=== PATIENT | female | born 1975 | race American Indian/Alaskan Native ===

== ENCOUNTER 2017-08-26 08:51 | Emergency (ER) | payer SELFPAY ==
[2017-08-26 08:59] VITALS: BP 153/94
[2017-08-26] MEDS ORDERED: PROVENTIL IH ONE (08:59)
== END 2017-08-26 10:22 | disposition left against medical advice (07) ==
LOC: ED 08:51
DX: J45.901 Unspecified asthma with (acute) exacerbation (principal); Z88.0 Allergy status to penicillin; Z88.2 Allergy status to sulfonamides; Z91.013 Allergy to seafood; Z87.891 Personal history of nicotine dependence; Z53.21 Procedure and treatment not carried out due to patient leaving prior to being seen by health care provider

== ENCOUNTER 2018-05-29 06:31 | Emergency (ER) | payer OTHER ==
[2018-05-29 06:40] VITALS: BP 137/85
--- NOTE | 2018-05-29 08:25 | Emergency Department Report ---
ED Upper Extremity Inj HPI - General Chief Complaint: Extremity Injury, Upper Stated Complaint: LEFT HAND TO ELBOW PAIN Time Seen by Provider: 05/29/18 08:20 Source: patient Mode of arrival: Ambulatory Limitations: No Limitations - History of Present Illness Initial Comments: Pt presents to the ED with c/o left hand and left wrist pain that began 3 weeks ago. She states she lifted a heavy basket at work and felt a "popping sensation" three weeks ago. She has had continued pain. Denies any previous injury. She states she has been taking ibuprofen for the pain. She is able to move all digits of the left hand. No numbness/weakness. - Related Data Home Medications Medication Instructions Recorded Confirmed Last Taken Alendronate Sodium 04/25/13 04/25/13 Unknown Darunavir Ethanolate [Prezista] 04/25/13 04/25/13 Unknown Ritonavir [Norvir] 04/25/13 04/25/13 Unknown Previous Rx's Medication Instructions Recorded Last Taken Type ALBUTEROL Inhaler (OR & NICU) 1 puff IH Q4-6H PRN #1 inha 04/25/13 Unknown Rx [ProAir HFA Inhaler] predniSONE [Deltasone] 1 tab PO TID #17 tab 04/25/13 Unknown Rx Ibuprofen 800 mg PO Q6HR PRN #20 tablet 05/29/18 Unknown Rx Allergies Allergy/AdvReac Type Severity Reaction Status Date / Time Penicillins Allergy Rash Verified 04/25/13 18:08 shellfish derived Allergy Rash Verified 04/25/13 18:10 Sulfa (Sulfonamide Allergy Rash Verified 04/25/13 18:10 Antibiotics) ED Review of Systems ROS: Stated complaint: LEFT HAND TO ELBOW PAIN Other details as noted in HPI Comment: All other systems reviewed and negative ED Past Medical Hx - Past Medical History Previous Medical History?: Yes Hx Asthma: Yes Hx HIV: Yes - Surgical History Past Surgical History?: Yes Additional Surgical History: c sec X4, circloges X 3, hernia, cervix, tubali gation - Social History Smoking Status: Former Smoker Substance Use Type: Marijuana - Medications Home Medications: Home Medications Medication Instructions Recorded Confirmed Last Taken Type ALBUTEROL Inhaler (OR & NICU) 1 puff IH Q4-6H PRN #1 inha 04/25/13 Unknown Rx [ProAir HFA Inhaler] Alendronate Sodium 04/25/13 04/25/13 Unknown History Darunavir Ethanolate [Prezista] 04/25/13 04/25/13 Unknown History Ritonavir [Norvir] 04/25/13 04/25/13 Unknown History predniSONE [Deltasone] 1 tab PO TID #17 tab 04/25/13 Unknown Rx Ibuprofen 800 mg PO Q6HR PRN #20 tablet 05/29/18 Unknown Rx ED Physical Exam - General Limitations: No Limitations General appearance: alert, in no apparent distress - Head Head exam: Present: atraumatic, normocephalic - Eye Eye exam: Present: normal appearance - ENT ENT exam: Present: mucous membranes moist - Extremities Exam Extremities exam: Present: other (mild TTP over the left thumb MCP, left thumb metacarpal, FROM of all the digits of the left hand, FROM of the left wrist, no TTP of the left wrist, neurovascularly intact, very mild amount of snuffbox TTP) ED Course Vital Signs 05/29/18 06:36 Temperature 97.7 F Pulse Rate 102 H Respiratory 20 Rate Blood Pressure 137/85 O2 Sat by Pulse 99 Oximetry ED Medical Decision Making - Radiology Data Radiology results: report reviewed PROCEDURE: XR WRIST 3+V LT, XR HAND 3+V LT TECHNIQUE: 3 views left hand and wrist HISTORY: left thumb/left wrist pain COMPARISONS: None FINDINGS: Carpal arcs are intact. No periosteal reaction, fracture or gross malalignment involving the left hand or wrist. IMPRESSION: No acute fracture or gross malalignment identified in the left hand or wrist. This document is electronically signed by Eriberto Kraus MD., May 29 2018 08:58:48 AM ET TECHNIQUE: 3 views left hand and wrist HISTORY: left thumb/left wrist pain COMPARISONS: None FINDINGS: Carpal arcs are intact. No periosteal reaction, fracture or gross malalignment involving the left hand or wrist. IMPRESSION: No acute fracture or gross malalignment identified in the left hand or wrist. This document is electronically signed by Eriberto Kraus MD., May 29 2018 08:58:48 AM ET - Medical Decision Making Pt presents with left thumb and left wrist pain for 3 weeks. Lifted a heavy basket at work and felt a popping sensation. XR of the left hand and wrist with no acute process. Pt is able to move all digits, neurovascularly intact. Due to very, mild amount of left sided snuffbox tenderness will place in wrist splint and have pt follow up with dontae Gaona as soon as possible. Critical care attestation.: If time is entered above; I have spent that time in minutes in the direct care of this critically ill patient, excluding procedure time. ED Disposition Clinical Impression: Left hand pain, Left wrist pain Disposition: TO HOME OR SELFCARE Is pt being admited?: No Does the pt Need Aspirin: No Condition: Stable Instructions: Wrist Injury (ED), Hand Sprain (ED) Additional Instructions: Follow up with orthopedic as soon as possible. Follow up with your primary care in the next 2-3 days. Return to the emergency room for any new or worsening symptoms. May use ice and ibuprofen 800 mg as needed. Prescriptions: Ibuprofen 800 mg PO Q6HR PRN #20 tablet PRN Reason: Pain, Moderate (4-6) Referrals: MARIA PATHAK MD [Primary Care Provider] - 2-3 Days JOAQUIN MARY MD [Staff Physician] - [facility] Time of Disposition: 09:17 Print Language: PAKISTANI
--- NOTE | 2018-05-29 09:01 | XRay Report ---
PROCEDURE: XR WRIST 3+V LT, XR HAND 3+V LT TECHNIQUE: 3 views left hand and wrist HISTORY: left thumb/left wrist pain COMPARISONS: None FINDINGS: Carpal arcs are intact. No periosteal reaction, fracture or gross malalignment involving the left butt d or wrist. IMPRESSION: No acute fracture or gross malalignment identified in the left hand or wrist. This document is electronically signed by Eriberto Kraus MD., May 29 2018 08:58:48 AM ET
== END 2018-05-29 09:42 | disposition home or self-care (01) ==
LOC: ED 06:31
DX: M25.532 Pain in left wrist (principal); M79.642 Pain in left hand; J45.909 Unspecified asthma, uncomplicated; F12.10 Cannabis abuse, uncomplicated; Z87.891 Personal history of nicotine dependence

== ENCOUNTER 2018-10-10 07:50 | Emergency (ER) | payer MEDICAID, OTHER ==
[2018-10-10 08:30] LABS: Basophils % (Auto) 0.5 % (0.0-1.8); Eosinophils # (Auto) 0.4 K/mm3 (0.0-0.4); Eosinophils % (Auto) 9.7 % (0.0-4.3); Hematocrit 41.9 % (30.3-42.9); Hemoglobin 14.1 gm/dl (10.1-14.3); Lymphocytes # (Auto) 2.1 K/mm3 (1.2-5.4); Lymphocytes % (Auto) 46.3 % (13.4-35.0); Mean Corpuscular HGB Conc 34 % (30-34); Mean Corpuscular Volume 92 fl (79-97); Monocytes # (Auto) 0.4 K/mm3 (0.0-0.8); Platelet Count 227 K/mm3 (140-440); Red Blood Count 4.58 M/mm3 (3.65-5.03); Red Cell Distribution Width 13.6 % (13.2-15.2)
[2018-10-10] MEDS ORDERED: MORPHINE IV ONE (08:31)
[2018-10-10] MEDS ORDERED: ZOFRAN IV ONE (08:31)
--- NOTE | 2018-10-10 08:33 | Emergency Department Report ---
ED General Adult HPI - General Chief complaint: Abdominal Pain Stated complaint: ABD PAIN/PELVIC Time Seen by Provider: 10/10/18 08:30 Source: patient Mode of arrival: Ambulatory Limitations: No Limitations - History of Present Illness Initial comments: The patient complains of lower right quadrant abdominal pain that radiates into her right leg that started this morning. Patient states she's had pain like this in the past and has never been able to find out the cause of the pain. Patient denies a history of ovarian cyst, endometriosis, fibroids. Patient denies chest pain but does endorse some shortness of breath due to her asthma. -: Sudden Location: abdomen, pelvis Severity scale (0 -10): 8 Quality: aching Consistency: constant Improves with: rest Worsens with: movement Associated Symptoms: denies other symptoms Treatments Prior to Arrival: none - Related Data Home Medications Medication Instructions Recorded Confirmed Last Taken Alendronate Sodium 04/25/13 04/25/13 Unknown Darunavir Ethanolate [Prezista] 04/25/13 04/25/13 Unknown Ritonavir [Norvir] 04/25/13 04/25/13 Unknown Previous Rx's Medication Instructions Recorded Last Taken Type ALBUTEROL Inhaler (OR & NICU) 1 puff IH Q4-6H PRN #1 inha 04/25/13 Unknown Rx [ProAir HFA Inhaler] predniSONE [Deltasone] 1 tab PO TID #17 tab 04/25/13 Unknown Rx Ibuprofen 800 mg PO Q6HR PRN #20 tablet 05/29/18 Unknown Rx ALBUTEROL Inhaler (OR & NICU) 2 puff IH Q4HR PRN #1 inhalation 10/10/18 Unknown Rx [ProAir HFA Inhaler] Albuterol Sulfate [Albuterol 0.63% 0.63 mg IH Q4HR PRN #30 ml 10/10/18 Unknown Rx NEBS] HYDROcodone/APAP 5-325 [[place] 1 each PO Q6HR PRN #12 tablet 10/10/18 Unknown Rx 5/325] Naproxen [Naprosyn] 500 mg PO BID PRN #20 tablet 10/10/18 Unknown Rx predniSONE [Deltasone] 20 mg PO DAILY #15 tablet 10/10/18 Unknown Rx Allergies Allergy/AdvReac Type Severity Reaction Status Date / Time Penicillins Allergy Rash Verified 04/25/13 18:08 shellfish derived Allergy Rash Verified 04/25/13 18:10 Sulfa (Sulfonamide Allergy Rash Verified 04/25/13 18:10 Antibiotics) ED Review of Systems ROS: Stated complaint: ABD PAIN/PELVIC Other details as noted in HPI Comment: All other systems reviewed and negative Constitutional: denies: chills, fever Eyes: denies: eye pain, eye discharge, vision change ENT: denies: ear pain, throat pain Respiratory: denies: cough, shortness of breath, wheezing Cardiovascular: denies: chest pain, palpitations Endocrine: no symptoms reported Gastrointestinal: abdominal pain. denies: nausea, diarrhea Genitourinary: denies: urgency, dysuria, discharge Musculoskeletal: denies: back pain, joint swelling, arthralgia Skin: denies: rash, lesions Neurological: denies: headache, weakness, paresthesias Psychiatric: denies: anxiety, depression Hematological/Lymphatic: denies: easy bleeding, easy bruising ED Past Medical Hx - Past Medical History Hx Asthma: Yes Hx HIV: Yes - Surgical History Past Surgical History?: Yes Additional Surgical History: c sec X4, circloges X 3, hernia, cervix, tubaligation - Social History Smoking Status: Current Every Day Smoker Substance Use Type: Marijuana - Medications Home Medications: Home Medications Medication Instructions Recorded Confirmed Last Taken Type ALBUTEROL Inhaler (OR & NICU) 1 puff IH Q4-6H PRN #1 inha 04/25/13 Unknown Rx [ProAir HFA Inhaler] Alendronate Sodium 04/25/13 04/25/13 Unknown History Darunavir Ethanolate [Prezista] 04/25/13 04/25/13 Unknown History Ritonavir [Norvir] 04/25/13 04/25/13 Unknown History predniSONE [Deltasone] 1 tab PO TID #17 tab 04/25/13 Unknown Rx Ibuprofen 800 mg PO Q6HR PRN #20 tablet 05/29/18 Unknown Rx ALBUTEROL Inhaler (OR & NICU) 2 puff IH Q4HR PRN #1 inhalation 10/10/18 Unknown Rx [ProAir HFA Inhaler] Albuterol Sulfate [Albuterol 0.63% 0.63 mg IH Q4HR PRN #30 ml 10/10/18 Unknown Rx NEBS] HYDROcodone/APAP 5-325 [[place] 1 each PO Q6HR PRN #12 tablet 10/10/18 Unknown Rx 5/325] Naproxen [Naprosyn] 500 mg PO BID PRN #20 tablet 10/10/18 Unknown Rx predniSONE [Deltasone] 20 mg PO DAILY #15 tablet 10/10/18 Unknown Rx ED Physical Exam - General Limitations: No Limitations General appearance: alert, in no apparent distress - Head Head exam: Present: atraumatic, normocephalic - Eye Eye exam: Present: normal appearance, PERRL, EOMI - ENT ENT exam: Present: mucous membranes moist - Neck Neck exam: Present: normal inspection - Respiratory Respiratory exam: Present: wheezes (Mild expiratory wheezing ). Absent: respiratory distress - Cardiovascular Cardiovascular Exam: Present: regular rate, normal rhythm. Absent: systolic murmur, diastolic murmur, rubs, gallop - GI/Abdominal GI/Abdominal exam: Present: soft, tenderness (ttp rlq), normal bowel sounds. Absent: distended - Extremities Exam Extremities exam: Present: normal inspection - Back Exam Back exam: Present: normal inspection - Neurological Exam Neurological exam: Present: alert, oriented X3 - Psychiatric Psychiatric exam: Present: normal affect, normal mood - Skin Skin exam: Present: warm, dry, intact, normal color. Absent: rash ED Course Vital Signs 10/10/18 10/10/18 10/10/18 07:55 08:30 11:00 Temperature 98.0 F Pulse Rate 81 81 85 Respiratory 20 18 17 Rate Blood Pressure 172/103 Blood Pressure 161/100 138/63 [Right] O2 Sat by Pulse 99 100 100 Oximetry ED Medical Decision Making - Lab Data Result diagrams: 10/10/18 08:11 10/10/18 08:11 Lab Results 10/10/18 10/10/18 10/10/18 Range/Units 08:11 08:11 08:30 WBC 4.5 (4.5-11.0) K/mm3 RBC 4.58 (3.65-5.03) M/mm3 Hgb 14.1 (10.1-14.3) gm/dl Hct 41.9 (30.3-42.9) % MCV 92 (79-97) fl MCH 31 (28-32) pg MCHC 34 (30-34) % RDW 13.6 (13.2-15.2) % Plt Count 227 (140-440) K/mm3 Lymph % (Auto) 46.3 H (13.4-35.0) % Morrison % (Auto) 8.0 H (0.0-7.3) % Eos % (Auto) 9.7 H (0.0-4.3) % Baso % (Auto) 0.5 (0.0-1.8) % Lymph # 2.1 (1.2-5.4) K/mm3 Morrison # 0.4 (0.0-0.8) K/mm3 Eos # 0.4 (0.0-0.4) K/mm3 Baso # 0.0 (0.0-0.1) K/mm3 Seg Neutrophils % 35.5 L (40.0-70.0) % Seg Neutrophils # 1.6 L (1.8-7.7) K/mm3 Sodium 139 (137-145) mmol/L Potassium 4.2 (3.6-5.0) mmol/L Chloride 104.2 (98-107) mmol/L Carbon Dioxide 25 (22-30) mmol/L Anion Gap 14 mmol/L BUN 10 (7-17) mg/dL Creatinine 0.8 (0.7-1.2) mg/dL Estimated GFR > 60 ml/min BUN/Creatinine Ratio 13 % Glucose 90 (65-100) mg/dL Calcium 8.8 (8.4-10.2) mg/dL Total Bilirubin < 0.20 (0.1-1.2) mg/dL AST 21 (5-40) units/L ALT 22 (7-56) units/L Alkaline Phosphatase 89 (35-129) units/L Total Protein 7.6 (6.3-8.2) g/dL Albumin 4.0 (3.9-5) g/dL Albumin/Globulin Ratio 1.1 % HCG, Quant (0-4) mIU/mL Urine Color Yellow (Yellow) Urine Turbidity Clear (Clear) Urine pH 7.0 (5.0-7.0) Ur Specific [place] 1.013 (1.003-1.030) Urine Protein <15 mg/dl (Negative) mg/dL Urine Glucose (UA) Neg (Negative) mg/dL Urine Ketones Neg (Negative) mg/dL Urine Blood Neg (Negative) Urine Nitrite Neg (Negative) Urine Bilirubin Neg (Negative) Urine Urobilinogen < 2.0 (<2.0) mg/dL Ur Leukocyte Esterase Neg (Negative) Urine WBC (Auto) < 1.0 (0.0-6.0) /HPF Urine RBC (Auto) 1.0 (0.0-6.0) /HPF U Epithel Cells (Auto) 2.0 (0-13.0) /HPF 10/10/18 Range/Units 09:28 WBC (4.5-11.0) K/mm3 RBC (3.65-5.03) M/mm3 Hgb (10.1-14.3) gm/dl Hct (30.3-42.9) % MCV (79-97) fl MCH (28-32) pg MCHC (30-34) % RDW (13.2-15.2) % Plt Count (140-440) K/mm3 Lymph % (Auto) (13.4-35.0) % Morrison % (Auto) (0.0-7.3) % Eos % (Auto) (0.0-4.3) % Baso % (Auto) (0.0-1.8) % Lymph # (1.2-5.4) K/mm3 [place] # (0.0-0.8) K/mm3 Eos # (0.0-0.4) K/mm3 Baso # (0.0-0.1) K/mm3 Seg Neutrophils % (40.0-70.0) % Seg Neutrophils # (1.8-7.7) K/mm3 Sodium (137-145) mmol/L Potassium (3.6-5.0) mmol/L Chloride (98-107) mmol/L Carbon Dioxide (22-30) mmol/L Anion Gap mmol/L BUN (7-17) mg/dL Creatinine (0.7-1.2) mg/dL Estimated GFR ml/min BUN/Creatinine Ratio % Glucose (65-100) mg/dL Calcium (8.4-10.2) mg/dL Total Bilirubin (0.1-1.2) mg/dL AST (5-40) units/L ALT (7-56) units/L Alkaline Phosphatase (35-129) units/L Total Protein (6.3-8.2) g/dL Albumin (3.9-5) g/dL Albumin/Globulin Ratio % HCG, Quant < 2 (0-4) mIU/mL Urine Color (Yellow) Urine Turbidity (Clear) Urine pH (5.0-7.0) Ur Specific [place] (1.003-1.030) Urine Protein (Negative) mg/dL Urine Glucose (UA) (Negative) mg/dL Urine Ketones (Negative) mg/dL Urine Blood (Negative) Urine Nitrite (Negative) Urine Bilirubin (Negative) Urine Urobilinogen (<2.0) mg/dL Ur Leukocyte Esterase (Negative) Urine WBC (Auto) (0.0-6.0) /HPF Urine RBC (Auto) (0.0-6.0) /HPF U Epithel Cells (Auto) (0-13.0) /HPF - Radiology Data Radiology results: report reviewed - Medical Decision Making Patient use her home inhaler while in the ED Discussed results with the patient especially finding the CT. Patient states that she was told she has Paget's disease and is aware of the lesion Critical care attestation.: If time is entered above; I have spent that time in minutes in the direct care of this critically ill patient, excluding procedure time. ED Disposition Clinical Impression: Abdominal pain, Leg pain, right, Asthma Disposition: DC-01 TO HOME OR SELFCARE Is pt being admited?: No Does the pt Need Aspirin: No Condition: Stable Instructions: Asthma (ED), Abdominal Pain (ED) Additional Instructions: return if worse Prescriptions: Albuterol Sulfate [Albuterol 0.63% NEBS] 0.63 mg IH Q4HR PRN #30 ml PRN Reason: Wheezing predniSONE [Deltasone] 20 mg PO DAILY #15 tablet Naproxen [Naprosyn] 500 mg PO BID PRN #20 tablet PRN Reason: pain HYDROcodone/APAP 5-325 [[place] 5/325] 1 each PO Q6HR PRN #12 tablet PRN Reason: Pain ALBUTEROL Inhaler (OR & NICU) [ProAir HFA Inhaler] 2 puff IH Q4HR PRN #1 inhalation PRN Reason: Shortness Of Breath Referrals: [facility] [Provider Group] - 3-5 Days [facility] [Provider Group] - 3-5 Days [facility]WO[facility] JULIO CMONROE MD [facility] [Primary Care Provider] - 3-5 Days Time of Disposition: 11:02
[2018-10-10 08:47] LABS: Alanine Aminotransferase 22 units/L (7-56); BUN/Creatinine Ratio 13; Blood Urea Nitrogen 10 mg/dL (7-17); Calcium 8.8 mg/dL (8.4-10.2); Hemolysis Index 15
[2018-10-10 09:49] LABS: Bilirubin,Urine NEG (Negative); Blood,Urine NEG (Negative); Color,Urine Yellow (Yellow); Protein,Urine <15 mg/dL mg/dL (Negative); Urobilinogen,Urine < 2.0 mg/dL (<2.0); WBC,Urine < 1.0 /HPF (0.0-6.0)
--- NOTE | 2018-10-10 10:50 | Cat Scan Report ---
CT ABDOMEN AND PELVIS WITHOUT CONTRAST, 10/10/2018 INDICATION: Right lower quadrant pain and pelvic pain for one day. TECHNICAL: Multiple axial CT images of the abdomen and pelvis were acquired without intravenous contr ast. Sagittal and coronal reformats were obtained. All CTs at this facility utilize dose reduction techniques including automated exposure control, iterative reconstruction and weight based dosing whe n appropriate to reduce patient radiation dose to as low as reasonable achievable. COMPARISON: CT of the abdomen and pelvis, 06/12/2009. FINDINGS: Limited imaging of the bilateral lung bases demonstrates no evidence of acute abnormality. Abdomen: The liver, spleen, gallbladder, pancreas, bilateral adrenal glands and bilateral kidneys be w no evidence of acute abnormality. There is no hydronephrosis or hydroureter. There is no evidence o f bowel obstruction. The appendix is not definitely identified, although no right lower quadrant infl ammatory changes are seen. Pelvis: No free fluid is identified within the pelvis. The uterus and urinary bladder appear within n ormal limits. Evaluation of bony structures demonstrate no evidence of acute bony abnormality. The expansile bony l esion involving the right pelvis has not significantly changed. Evaluation of soft tissue structures shows no evidence of acute abnormality. IMPRESSION: 1. No CT evidence of acute inflammatory or obstructive process within the abdomen or pelvis. 2. Stable expansile bony lesion within the right pelvis unchanged from previous study of 2009. Its st able appearance and benign features imply a benign process. Signer Name: Lauren Crow MD Signed: 10/10/2018 10:46 AM Workstation Name: [id number]
[2018-10-10 11:00] VITALS: BP 138/63
== END 2018-10-10 11:31 | disposition home or self-care (01) ==
LOC: ED 07:50
DX: R10.31 Right lower quadrant pain (principal); J45.909 Unspecified asthma, uncomplicated; F17.200 Nicotine dependence, unspecified, uncomplicated; F12.90 Cannabis use, unspecified, uncomplicated; Z98.890 Other specified postprocedural states; Z98.51 Tubal ligation status; Z79.899 Other long term (current) drug therapy; Z88.2 Allergy status to sulfonamides; Z88.0 Allergy status to penicillin; Z91.013 Allergy to seafood
CPT/HCPCS: 36415; 74176; 80053; 81001; 84702; 85025; 96374; 96375; 99284; J2270; J2405

== ENCOUNTER 2019-11-09 01:34 | Emergency (ER) | payer MEDICAID ==
[2019-11-09] MEDS ORDERED: ALBUTEROL 2.5 MG/3 ML NEBU IH ONE ×2 (01:58→02:53)
[2019-11-09] MEDS ORDERED: MAGNESIUM SULFATE 2 GM/50 ML BAG IV ONE (02:54)
[2019-11-09] MEDS ORDERED: ONDANSETRON 4 MG/2 ML INJ IV ONE (02:54)
[2019-11-09] MEDS ORDERED: KETOROLAC 30 MG/1 ML INJ IV ONE (02:54)
[2019-11-09] MEDS ORDERED: BENZONATATE 100 MG CAP PO ONE ×2 (02:54→05:19)
[2019-11-09] MEDS ORDERED: MORPHINE 4 MG/1 ML INJ IV ONE (02:54)
[2019-11-09 03:37] LABS: Hematocrit 41.4 % (30.3-42.9); Hemoglobin 13.9 gm/dl (10.1-14.3); Lymphocytes % (Auto) 14.7 % (13.4-35.0); Mean Corpuscular HGB Conc 34 % (30-34); Mean Corpuscular Volume 91 fl (79-97); Monocytes % (Auto) 2.6 % (0.0-7.3); Platelet Count 267 K/mm3 (140-440); Red Blood Count 4.56 M/mm3 (3.65-5.03); Red Cell Distribution Width 13.4 % (13.2-15.2)
--- NOTE | 2019-11-09 03:41 | XRay Report ---
CHEST 1 VIEW, 11/09/2019 3:01 AM CLINICAL INFORMATION/INDICATION: Shortness of breath. Cough. COMPARISON: None FINDINGS: SUPPORT DEVICES: None. HEART: The cardiac silhouette is normal in size. LUNGS/PLEURA: The lungs appear clear of focal airspace disease or significant pleural effusion. ADDITIONAL FINDINGS: No additional acute findings. IMPRESSION: 1. No evidence of acute cardiopulmonary process. Signer Name: Lauren Crow MD Signed: 11/09/2019 3:36 AM Workstation Name: [id number]
[2019-11-09 03:57] LABS: BUN/Creatinine Ratio 14; Blood Urea Nitrogen 11 mg/dL (7-17); Calcium 8.9 mg/dL (8.4-10.2); Hemolysis Index 12
--- NOTE | 2019-11-09 04:11 | Emergency Department Report ---
<EMMY ROONEY - Last Filed: 11/09/19 06:12> ED Shortness of Breath HPI - General Chief Complaint: Dyspnea/Respdistress Stated Complaint: CONRAD Time Seen by Provider: 11/09/19 02:48 Source: patient, EMS Mode of arrival: Stretcher Limitations: No Limitations - History of Present Illness Initial Comments: 44-year-old female with a past medical history of asthma, HIV with CD4 greater than 200 but detectable viral load currently on antiretrovirals, Paget's disease, and fibrodysplasia presents to the hospital with complaints of sudden onset of wheezing and shortness of breath upon waking this morning. Patient tried a home neb treatment without improvement. She was given albuterol 7.5 mg, Atrovent 1 mg, Solu-Medrol 125 mg by EMS prior to arrival and states she is feeling a little bit better. Patient has a sternal sharp chest pain worse with palpation and deep inspiration radiating to the back. She complains of cough pr oductive of phlegm but unable to characterize the color. She denies fever or loss of sense of taste or smell, or known cold exposure. She has not been tested for coronavirus. She also has secondary complaint of intermittent headache x2-day. Described as a band around her head. No nausea, vomiting, blurred vision, focal weakness - Related Data Home Medications Medication Instructions Recorded Confirmed Last Taken Alendronate Sodium 04/25/13 04/25/13 Unknown Darunavir Ethanolate [Prezista] 04/25/13 04/25/13 Unknown Ritonavir 04/25/13 04/25/13 Unknown Previous Rx's Medication Instructions Recorded Last Taken Type Albuterol Mdi (or & Nicu Only) 1 puff IH Q4-6H PRN #1 inha 04/25/13 Unknown Rx [ProAir HFA Inhaler] predniSONE [Deltasone] 1 tab PO TID #17 tab 04/25/13 Unknown Rx Ibuprofen 800 mg PO Q6HR PRN #20 tablet 05/29/18 Unknown Rx Albuterol Mdi (or & Nicu Only) 2 puff IH Q4HR PRN #1 inhalation 10/10/18 Unknown Rx [ProAir HFA Inhaler] Albuterol Sulfate [Albuterol 0.63% 0.63 mg IH Q4HR PRN #30 ml 10/10/18 Unknown Rx NEBS] HYDROcodone/APAP 5-325 [[place] 1 each PO Q6HR PRN #12 tablet 10/10/18 Unknown Rx 5/325] Naproxen [Naprosyn] 500 mg PO BID PRN #20 tablet 10/10/18 Unknown Rx predniSONE [Deltasone] 20 mg PO DAILY #15 tablet 10/10/18 Unknown Rx Clindamycin [Clindamycin CAP] 300 mg PO Q8H #21 cap 12/07/18 Unknown Rx HYDROcodone/APAP 5-325 [[place] 1 each PO Q6HR PRN #14 tablet 12/07/18 Unknown Rx 5/325] Ibuprofen [Motrin 800 MG tab] 800 mg PO Q8HR PRN #10 tablet 12/07/18 Unknown Rx ALBUTEROL NEB's [Proventil 0.083% 2.5 mg IH TID PRN #30 neb 11/09/19 Unknown Rx NEBS] Albuterol Sulfate [Proventil Hfa] 2 gm IH Q4HR PRN #1 hfa.aer.ad 11/09/19 Unknown Rx Benzonatate [Tessalon Perles] 100 mg PO Q8HR PRN #20 capsule 11/09/19 Unknown Rx Ibuprofen [Motrin] 800 mg PO Q8HR PRN #14 tablet 11/09/19 Unknown Rx Prednisone [predniSONE 10 mg 10 mg PO .TAPER #1 tab.ds.pk 11/09/19 Unknown Rx (6-Day Pack, 21 Tabs)] Allergies Allergy/AdvReac Type Severity Reaction Status Date / Time Penicillins Allergy Rash Verified 12/07/18 09:22 shellfish derived Allergy Rash Verified 12/07/18 09:22 Sulfa (Sulfonamide Allergy Rash Verified 12/07/18 09:22 Antibiotics) ED Review of Systems Comment: All other systems reviewed and negative ED Past Medical Hx - Past Medical History Previous Medical History?: Yes Hx Asthma: Yes Hx HIV: Yes Additional medical history: pagett's. Fibroidysplegia - Surgical History Past Surgical History?: Yes Additional Surgical History: c sec X4, circloges X 3, hernia, cervix, tubaligation - Social History Smoking Status: Former Smoker Substance Use Type: None - Medications Home Medications: Home Medications Medication Instructions Recorded Confirmed Last Taken Type Albuterol Mdi (or & Nicu Only) 1 puff IH Q4-6H PRN #1 inha 04/25/13 Unknown Rx [ProAir HFA Inhaler] Alendronate Sodium 04/25/13 04/25/13 Unknown History Darunavir Ethanolate [Prezista] 04/25/13 04/25/13 Unknown History Ritonavir 04/25/13 04/25/13 Unknown History predniSONE [Deltasone] 1 tab PO TID #17 tab 04/25/13 Unknown Rx Ibuprofen 800 mg PO Q6HR PRN #20 tablet 05/29/18 Unknown Rx Albuterol Mdi (or & Nicu Only) 2 puff IH Q4HR PRN #1 inhalation 10/10/18 Unknown Rx [ProAir HFA Inhaler] Albuterol Sulfate [Albuterol 0.63% 0.63 mg IH Q4HR PRN #30 ml 10/10/18 Unknown Rx NEBS] HYDROcodone/APAP 5-325 [[place] 1 each PO Q6HR PRN #12 tablet 10/10/18 Unknown Rx 5/325] Naproxen [Naprosyn] 500 mg PO BID PRN #20 tablet 10/10/18 Unknown Rx predniSONE [Deltasone] 20 mg PO DAILY #15 tablet 10/10/18 Unknown Rx Clindamycin [Clindamycin CAP] 300 mg PO Q8H #21 cap 12/07/18 Unknown Rx HYDROcodone/APAP 5-325 [[place] 1 each PO Q6HR PRN #14 tablet 12/07/18 Unknown Rx 5/325] Ibuprofen [Motrin 800 MG tab] 800 mg PO Q8HR PRN #10 tablet 12/07/18 Unknown Rx ALBUTEROL NEB's [Proventil 0.083% 2.5 mg IH TID PRN #30 neb 11/09/19 Unknown Rx NEBS] Albuterol Sulfate [Proventil Hfa] 2 gm IH Q4HR PRN #1 hfa.aer.ad 11/09/19 Unknown Rx Benzonatate [Tessalon Perles] 100 mg PO Q8HR PRN #20 capsule 11/09/19 Unknown Rx Ibuprofen [Motrin] 800 mg PO Q8HR PRN #14 tablet 11/09/19 Unknown Rx Prednisone [predniSONE 10 mg 10 mg PO .TAPER #1 tab.ds.pk 11/09/19 Unknown Rx (6-Day Pack, 21 Tabs)] ED Physical Exam - General Limitations: No Limitations - Other Other exam information: General: No acute distress Head: Atraumatic Eyes: normal appearance ENT: Moist mucous membranes Neck: Normal appearance, no midline tenderness Chest: Bilateral wheezing without tachypnea or accessory muscle use. Reproducible sternal chest wall tenderness to palpation CV: Regular rate and rhythm Abdomen: Soft, normal bowel sounds, nontender, nondistended, no rebound or guarding Back: Normal inspection Extremity: Normal inspection, full range of motion, no calf tenderness or leg edema Neuro: Alert O x 3, no facial asymmetry, speech clear, no gross motor sensory deficit Psych: Appropriate behavior Skin: No rash ED Course - Reevaluation(s) Reevaluation #1: 11/09/19 05:12 Patient reported feeling better and her breathing and chest pain have improved. She states that pain medicine initially helped with headache is coming back and feels like a band around her head and worse in the forehead. She also endorses a past medical history of migraines but she has not had a headache in a long time ED Medical Decision Making - Lab Data Result diagrams: 11/09/19 03:18 11/09/19 03:18 Lab Results 11/09/19 11/09/19 Range/Units 03:18 03:18 WBC 7.5 (4.5-11.0) K/mm3 RBC 4.56 (3.65-5.03) M/mm3 Hgb 13.9 (10.1-14.3) gm/dl Hct 41.4 (30.3-42.9) % MCV 91 (79-97) fl MCH 30 (28-32) pg MCHC 34 (30-34) % RDW 13.4 (13.2-15.2) % Plt Count 267 (140-440) K/mm3 Lymph % (Auto) 14.7 (13.4-35.0) % [place] % (Auto) 2.6 (0.0-7.3) % Eos % (Auto) 0.9 (0.0-4.3) % Baso % (Auto) 0.3 (0.0-1.8) % Lymph # 1.1 L (1.2-5.4) K/mm3 [place] # 0.2 (0.0-0.8) K/mm3 Eos # 0.1 (0.0-0.4) K/mm3 Baso # 0.0 (0.0-0.1) K/mm3 Add Manual Diff Complete Seg Neutrophils % 81.5 H (40.0-70.0) % Seg Neutrophils # 6.1 (1.8-7.7) K/mm3 Sodium 140 (137-145) mmol/L Potassium 3.5 L (3.6-5.0) mmol/L Chloride 104.4 (98-107) mmol/L Carbon Dioxide 22 (22-30) mmol/L Anion Gap 17 mmol/L BUN 11 (7-17) mg/dL Creatinine 0.8 (0.6-1.2) mg/dL Estimated GFR > 60 ml/min BUN/Creatinine Ratio 14 % Glucose 107 H (65-100) mg/dL Calcium 8.9 (8.4-10.2) mg/dL - EKG Data -: EKG Interpreted by Nm EKG shows normal: sinus rhythm, ST-T waves (no stemi) Rate: normal (97) - Radiology Data Radiology results: report reviewed (cxr: naf) - Medical Decision Making Patient presenting with wheezing and shortness of breath with a history of ast hma. Symptoms improved with ED treatment. Patient received bronchodilators, Solu-Medrol, magnesium. Patient has reproducible sternal chest wall tenderness radiating to the back. First diagnosed with costochondritis treated with morphine and Toradol. Chest x-ray unremarkable. No signs of hypoxia. Patient secondary complaint of headache. CT head performed. No neurologic findings on exam. Patient does have a history of migraines and also has a history of headaches secondary to fibrodysplasia. Her description sounds like a tension headache. She was treated with Reglan, Benadryl, and Fioricet. CT head results pending at disposition will be signed out to my oncoming colleague Dr. Kong Patient prepped for discharge with medications for acute asthma exacerbation/bronchitis as well as tension headache Critical Care Time: No ED Disposition Clinical Impression: Acute asthmatic bronchitis, Tension headache, Costochondritis, acute Disposition: DC-01 TO HOME OR SELFCARE Is pt being admited?: No Does the pt Need Aspirin: No Condition: Stable Instructions: Asthma (ED), Tension Headache (ED), Costochondritis (ED), Acute Bronchitis (ED) Additional Instructions: Take the medication as prescribed. Follow-up with your doctor or doctor/clinic provided. Return if symptoms worsen as indicated by your discharge instructions. Prescriptions: Ibuprofen [Motrin] 800 mg PO Q8HR PRN #14 tablet PRN Reason: Pain , Severe (7-10) Prednisone [predniSONE 10 mg (6-Day Pack, 21 Tabs)] 10 mg PO .TAPER #1 tab.ds.pk ALBUTEROL NEB's [Proventil 0.083% NEBS] 2.5 mg IH TID PRN #30 neb PRN Reason: Wheezing Albuterol Sulfate [Proventil Hfa] 2 gm IH Q4HR PRN #1 hfa.aer.ad PRN Reason: Wheezing Benzonatate [Tessalon Perles] 100 mg PO Q8HR PRN #20 capsule PRN Reason: Cough Referrals: PRIMARY CARE, [Primary Care Provider] - 3-5 Days [facility] [Provider Group] - 3-5 Days <SANTOS KONG - Last Filed: 11/09/19 15:44> ED Review of Systems ROS: Stated complaint: CONRAD Other details as noted in HPI ED Course Vital Signs 11/09/19 11/09/19 11/09/19 02:01 02:02 02:08 Temperature 98 F Pulse Rate 96 H Pulse Rate [ 102 H Anterior Bilateral Throughout] Respiratory 16 16 Rate Respiratory 12 Rate [Anterior Bilateral Throughout] Blood Pressure Blood Pressure 136/83 [Right] O2 Sat by Pulse 100 100 Oximetry 11/09/19 11/09/19 11/09/19 02:15 02:30 02:45 Temperature Pulse Rate 100 H 97 H 95 H Pulse Rate [ Anterior Bilateral Throughout] Respiratory 27 H 22 20 Rate Respiratory Rate [Anterior Bilateral Throughout] Blood Pressure 151/81 134/78 138/80 Blood Pressure [Right] O2 Sat by Pulse 98 96 98 Oximetry 11/09/19 11/09/19 11/09/19 03:00 03:01 03:15 Temperature Pulse Rate 86 98 H Pulse Rate [ 94 H Anterior Bilateral Throughout] Respiratory 17 23 Rate Respiratory 16 Rate [Anterior Bilateral Throughout] Blood Pressure 144/81 152/84 Blood Pressure [Right] O2 Sat by Pulse 98 96 Oximetry 11/09/19 11/09/19 11/09/19 03:30 03:45 04:00 Temperature Pulse Rate 95 H 90 93 H Pulse Rate [ Anterior Bilateral Throughout] Respiratory 19 20 21 Rate Respiratory Rate [Anterior Bilateral Throughout] Blood Pressure 126/59 117/55 110/65 Blood Pressure [Right] O2 Sat by Pulse 95 94 95 Oximetry 11/09/19 11/09/19 11/09/19 04:15 05:45 07:45 Temperature Pulse Rate 98 H Pulse Rate [ Anterior Bilateral Throughout] Respiratory 24 Rate Respiratory Rate [Anterior Bilateral Throughout] Blood Pressure 117/55 110/65 135/75 Blood Pressure [Right] O2 Sat by Pulse 97 98 96 Oximetry 11/09/19 11/09/19 08:00 10:16 Temperature Pulse Rate 95 H 96 H Pulse Rate [ Anterior Bilateral Throughout] Respiratory 20 20 Rate Respiratory Rate [Anterior Bilateral Throughout] Blood Pressure 139/77 Blood Pressure 129/70 [Right] O2 Sat by Pulse 96 98 Oximetry - Reevaluation(s) Reevaluation #2: 11/09/19 09:[address] scan of the brain negative for acute findings. Patient resting comfortably in her stretcher, and in no acute distress. Moving 4 extremities, GCS of 15. Patient counseled to continue current outpatient medications, and follow-up as an outpatient. Return precautions have been reviewed ED Medical Decision Making - Lab Data Result diagrams: 11/09/19 03:18 11/09/19 03:18 - Radiology Data Radiology results: report reviewed, image reviewed Critical care attestation.: If time is entered above; I have spent that time in minutes in the direct care of this critically ill patient, excluding procedure time. ED Disposition Is pt being admited?: No Does the pt Need Aspirin: No
[2019-11-09 04:38] LABS: Basophils % (Auto) 0.3 % (0.0-1.8); Eosinophils # (Auto) 0.1 K/mm3 (0.0-0.4); Eosinophils % (Auto) 0.9 % (0.0-4.3); Lymphocytes # (Auto) 1.1 K/mm3 (1.2-5.4); Monocytes # (Auto) 0.2 K/mm3 (0.0-0.8)
[2019-11-09] MEDS ORDERED: diphenhydrAMINE 50 MG/ML VIAL IV ONE (05:12)
[2019-11-09] MEDS ORDERED: BUTALB/ACETAMINOPHEN/CAFFEINE TAB PO ONE (05:12)
[2019-11-09] MEDS ORDERED: METOCLOPRAMIDE 10 MG/2 ML INJ IV ONE (05:12)
[2019-11-09] MEDS ORDERED: POTASSIUM CHLORIDE ER 20 MEQ TAB PO ONE (05:13)
--- NOTE | 2019-11-09 06:41 | Cat Scan Report ---
Examination: CT of the head without contrast Clinical information: Headache Comparison: No relevant prior studies are available for comparison. Technical: Multiple axial CT images of the head were obtained without intravenous contrast. Sagittal and coronal reformats were obtained. All CTs at this facility utilize dose reduction techniques inc luding automated exposure control, iterative reconstruction and weight based dosing when appropriate to reduce patient radiation dose to as low as reasonable achievable. Findings: There is no CT evidence of acute intracranial hemorrhage or large territorial infarct. The ventricular system appears normal in size. No extra-axial fluid collection is identified. Evaluation of the calvarium demonstrates no evidence of acute bony abnormality. The visualized parana bo sinuses and mastoid air cells appear grossly clear. Impression: 1. No CT evidence of acute intracranial process. Signer Name: Lauren Crow MD Signed: 11/09/2019 6:36 AM Workstation Name: [id number]
[2019-11-09 10:17] VITALS: BP 129/70
== END 2019-11-09 10:06 | disposition home or self-care (01) ==
LOC: ED 01:34
DX: J45.909 Unspecified asthma, uncomplicated (principal); G44.209 Tension-type headache, unspecified, not intractable; M94.0 Chondrocostal junction syndrome [Tietze]; Z88.0 Allergy status to penicillin; Z91.013 Allergy to seafood; Z88.2 Allergy status to sulfonamides; Z21 Asymptomatic human immunodeficiency virus [HIV] infection status; Z87.891 Personal history of nicotine dependence; Z98.890 Other specified postprocedural states; Z98.51 Tubal ligation status; Z79.899 Other long term (current) drug therapy
CPT/HCPCS: 36415; 70450; 71045; 80048; 85025; 93005; 94640; 96365; 96375; 99285; J1200; J1885; J2270; J2405; J2765; J3475; 94644

== ENCOUNTER 2021-03-03 08:51 | Emergency (ER) | payer MEDICAID ==
[2021-03-03] MEDS ORDERED: dexAMETHasone 20 MG/5 ML VIAL IV ONE (09:06)
[2021-03-03] MEDS ORDERED: IPRATROPIUM 0.02% NEBU 2.5 ML IH ONE ×2 (09:06→14:48)
[2021-03-03] MEDS ORDERED: ALBUTEROL 2.5 MG/3 ML NEBU IH ONE ×2 (09:06→14:48)
--- NOTE | 2021-03-03 09:57 | XRay Report ---
CHEST 2 VIEWS INDICATION / CLINICAL INFORMATION: chest tightness, dyspnea. COMPARISON: 11/09/2019 FINDINGS: SUPPORT DEVICES: None. HEART / MEDIASTINUM: No significant abnormality. LUNGS / PLEURA: Mild patchy bilateral mid and lower lung opacities. ADDITIONAL FINDINGS: No significant additional findings. IMPRESSION: 1. Mild patchy bilateral mid and lower lung opacities could reflect multifocal pneumonia. Signer Name: Best Harrison MD Signed: 03/03/2021 9:52 AM Workstation Name: [id number]
--- NOTE | 2021-03-03 11:08 | Emergency Department Report ---
- General Chief Complaint: Adult Asthma Stated Complaint: SOB Time Seen by Provider: 03/03/21 09:05 Source: patient Mode of arrival: Ambulatory Limitations: No Limitations - History of Present Illness Initial Comments: 45-year-old -[place] female with a history of asthma presents to the emergency room complaining of shortness of breath has run out of her asthma medication. States she been having difficulty breathing. Patient states that she had a recent Covid test a few days ago and it was negative. Patient is not vaccinated. MD Complaint: cough Onset/Timin -: days(s) - Related Data Home Medications Medication Instructions Recorded Confirmed Last Taken Alendronate Sodium 04/25/13 04/25/13 Unknown Darunavir Ethanolate [Prezista] 04/25/13 04/25/13 Unknown Ritonavir 04/25/13 04/25/13 Unknown Previous Rx's Medication Instructions Recorded Last Taken Type Albuterol Mdi (or & Nicu Only) 1 puff IH Q4-6H PRN #1 inha 04/25/13 Unknown Rx [ProAir HFA Inhaler] predniSONE [Deltasone] 1 tab PO TID #17 tab 04/25/13 Unknown Rx Ibuprofen 800 mg PO Q6HR PRN #20 tablet 05/29/18 Unknown Rx Albuterol Sulfate [Albuterol 0.63% 0.63 mg IH Q4HR PRN #30 ml 10/10/18 Unknown Rx NEBS] HYDROcodone/APAP 5-325 [[place] 1 each PO Q6HR PRN #12 tablet 10/10/18 Unknown Rx 5/325] Naproxen [Naprosyn] 500 mg PO BID PRN #20 tablet 10/10/18 Unknown Rx predniSONE [Deltasone] 20 mg PO DAILY #15 tablet 10/10/18 Unknown Rx Clindamycin [Clindamycin CAP] 300 mg PO Q8H #21 cap 12/07/18 Unknown Rx HYDROcodone/APAP 5-325 [[place] 1 each PO Q6HR PRN #14 tablet 12/07/18 Unknown Rx 5/325] Ibuprofen [Motrin 800 MG tab] 800 mg PO Q8HR PRN #10 tablet 12/07/18 Unknown Rx Albuterol Sulfate [Proventil Hfa] 2 gm IH Q4HR PRN #1 hfa.aer.ad 08/26/20 Unknown Rx Benzonatate [Tessalon Perles] 100 mg PO Q8HR PRN #20 capsule 11/09/19 Unknown Rx Ibuprofen [Motrin] 800 mg PO Q8HR PRN #14 tablet 11/09/19 Unknown Rx ALBUTEROL NEB's [Proventil 0.083% 2.5 mg IH TID PRN #270 neb 03/03/21 Unknown Rx NEBS] Albuterol Mdi (or & Nicu Only) 2 puff IH Q4HR PRN #1 inhalation 03/03/21 Unknown Rx [ProAir HFA Inhaler] Azithromycin [Zithromax Z-BREEZY] 250 mg PO DAILY #6 tab 03/03/21 Unknown Rx Prednisone [predniSONE 10 mg 10 mg PO .TAPER #1 tab.ds.pk 03/03/21 Unknown Rx (6-Day Pack, 21 Tabs)] Allergies Allergy/AdvReac Type Severity Reaction Status Date / Time Penicillins Allergy Rash Verified 12/07/18 09:22 shellfish derived Allergy Rash Verified 12/07/18 09:22 Sulfa (Sulfonamide Allergy Rash Verified 12/07/18 09:22 Antibiotics) ED Review of Systems ROS: Stated complaint: SOB Other details as noted in HPI ED Past Medical Hx - Past Medical History Previous Medical History?: Yes Hx Asthma: Yes Hx HIV: Yes Additional medical history: pagett's. Fibroidysplegia - Surgical History Additional Surgical History: c sec X4, circloges X 3, hernia, cervix, tubaligation - Social History Smoking Status: Former Smoker Substance Use Type: None - Medications Home Medications: Home Medications Medication Instructions Recorded Confirmed Last Taken Type Albuterol Mdi (or & Nicu Only) 1 puff IH Q4-6H PRN #1 inha 04/25/13 Unknown Rx [ProAir HFA Inhaler] Alendronate Sodium 04/25/13 04/25/13 Unknown History Darunavir Ethanolate [Prezista] 04/25/13 04/25/13 Unknown History Ritonavir 04/25/13 04/25/13 Unknown History predniSONE [Deltasone] 1 tab PO TID #17 tab 04/25/13 Unknown Rx Ibuprofen 800 mg PO Q6HR PRN #20 tablet 05/29/18 Unknown Rx Albuterol Sulfate [Albuterol 0.63% 0.63 mg IH Q4HR PRN #30 ml 07/28/19 Unknown Rx NEBS] HYDROcodone/APAP 5-325 [[place] 1 each PO Q6HR PRN #12 tablet 10/10/18 Unknown Rx 5/325] Naproxen [Naprosyn] 500 mg PO BID PRN #20 tablet 10/10/18 Unknown Rx predniSONE [Deltasone] 20 mg PO DAILY #15 tablet 10/10/18 Unknown Rx Clindamycin [Clindamycin CAP] 300 mg PO Q8H #21 cap 12/07/18 Unknown Rx HYDROcodone/APAP 5-325 [[place] 1 each PO Q6HR PRN #14 tablet 12/07/18 Unknown Rx 5/325] Ibuprofen [Motrin 800 MG tab] 800 mg PO Q8HR PRN #10 tablet 12/07/18 Unknown Rx Albuterol Sulfate [Proventil Hfa] 2 gm IH Q4HR PRN #1 hfa.aer.ad 11/09/19 Unknown Rx Benzonatate [Tessalon Perles] 100 mg PO Q8HR PRN #20 capsule 11/09/19 Unknown Rx Ibuprofen [Motrin] 800 mg PO Q8HR PRN #14 tablet 11/09/19 Unknown Rx ALBUTEROL NEB's [Proventil 0.083% 2.5 mg IH TID PRN #270 neb 03/03/21 Unknown Rx NEBS] Albuterol Mdi (or & Nicu Only) 2 puff IH Q4HR PRN #1 inhalation 03/03/21 Unknown Rx [ProAir HFA Inhaler] Azithromycin [Zithromax Z-BREEZY] 250 mg PO DAILY #6 tab 03/03/21 Unknown Rx Prednisone [predniSONE 10 mg 10 mg PO .TAPER #1 tab.ds.pk 03/03/21 Unknown Rx (6-Day Pack, 21 Tabs)] ED Physical Exam - General Limitations: No Limitations General appearance: alert, in no apparent distress - Head Head exam: Present: atraumatic, normocephalic - Eye Eye exam: Present: normal appearance - ENT ENT exam: Present: mucous membranes moist - Neck Neck exam: Present: normal inspection - Respiratory Respiratory exam: Present: wheezes, rhonchi, accessory muscle use. Absent: respiratory distress - Cardiovascular Cardiovascular Exam: Present: regular rate, normal rhythm. Absent: systolic murmur, diastolic murmur, rubs, gallop - GI/Abdominal GI/Abdominal exam: Present: soft, normal bowel sounds - Extremities Exam Extremities exam: Present: normal inspection - Back Exam Back exam: Present: normal inspection - Neurological Exam Neurological exam: Present: alert, oriented X3 - Psychiatric Psychiatric exam: Present: normal affect, normal mood - Skin Skin exam: Present: warm, dry, intact, normal color. Absent: rash ED Course Vital Signs 03/03/21 09:08 Temperature 98.8 F Pulse Rate 105 H Respiratory 20 Rate Blood Pressure 163/97 [Right] O2 Sat by Pulse 97 Oximetry ED Medical Decision Making - Radiology Data Radiology results: report reviewed [facility] [address] [place] [address] XRay Report Signed Patient: APOLINAR VALDIVIA MR#: [id number] : 1975 Acct:[id number] Age/Sex: 45 / F ADM Date: 03/03/21 Loc: ED Attending Dr: Ordering Physician: RHINA BARAJAS Date of Service: 03/03/21 Procedure(s): XR chest routine 2V Accession Number(s): [id number] cc: RHINA BARAJAS Fluoro Time In Minutes: CHEST 2 VIEWS INDICATION / CLINICAL INFORMATION: chest tightness, dyspnea. COMPARISON: 11/09/2019 FINDINGS: SUPPORT DEVICES: None. HEART / MEDIASTINUM: No significant abnormality. LUNGS / PLEURA: Mild patchy bilateral mid and lower lung opacities. ADDITIONAL FINDINGS: No significant additional findings. IMPRESSION: 1. Mild patchy bilateral mid and lower lung opacities could reflect multifocal pneumonia. Signer Name: Best Harrison MD Signed: 03/03/2021 9:52 AM Workstation Name: [id number] Transcribed By: JOSEPH Dictated By: Best Harrison MD Electronically Authenticated By: Best Harrison MD Signed Date/Time: 03/03/21951 DD/ 1 TD/TT: - Medical Decision Making 45-year-old -[place] female with a history of asthma presents to the emergency room complaining of shortness of breath has run out of her asthma medication. States she been having difficulty breathing. Patient states that she had a recent Covid test a few days ago and it was negative. Patient is not vaccinated. Patient get a refill on her nebulizer solution inhaler placed on a azithromycin steroids and recommend to follow-up with her primary care provider. Critical care attestation.: If time is entered above; I have spent that time in minutes in the direct care of this critically ill patient, excluding procedure time. ED Disposition Clinical Impression: Suspected COVID-19 virus infection, Pneumonia, Asthma Disposition: HOME / SELF CARE / HOMELESS Is pt being admited?: No Does the pt Need Aspirin: No Condition: Stable Instructions: COVID-19 Frequently Asked Questions, COVID-19: How to Protect Yourself and Others - CDC, Community-Acquired Pneumonia, Adult, [id number], Prevent the Spread of COVID-19 if You Are Sick - CDC, Asthma (ED), Bacterial Pneumonia (ED) Additional Instructions: Please complete antibiotics, steroids use your inhalers and nebulizer treatment as prescribed. Follow-up with your primary care provider. Your symptoms appear most consistent with a nonspecific viral syndrome. However, given this current pandemic, COVID-19 is in the differential of possibilities. Despite your previous negative COVID-19 test, I do recommend repeat outpatient Covid 19 testing. In the meantime, isolate/quarantine yourself and stay away from anyone who is elderly, immunocompromised or chronically ill. You can use ibuprofen every 6-8 hours and Tylenol every 4-8 hours, using the dosing on the back of the bottle, as needed for any fever or body aches. Return to the emergency department with any worsening of your symptoms, development of chest pain or shortness of breath, or with any acute distress. Prescriptions: Prednisone [predniSONE 10 mg (6-Day Pack, 21 Tabs)] 10 mg PO .TAPER #1 tab.ds.pk Albuterol Mdi (or & Nicu Only) [ProAir HFA Inhaler] 2 puff IH Q4HR PRN #1 inhalation PRN Reason: Shortness Of Breath ALBUTEROL NEB's [Proventil 0.083% NEBS] 2.5 mg IH TID PRN #270 neb PRN Reason: Wheezing Azithromycin [Zithromax Z-BREEZY] 250 mg PO DAILY #6 tab Referrals: PRIMARY CARE, [Primary Care Provider] - 3-5 Days Forms: Work/School Release Form(ED) Time of Disposition: 11:48
--- NOTE | 2021-03-03 12:05 | Electrocardiograph Report ---
[facility] Test Date: 2021-03-03 Test Time: 10:44:25 Pat Name: APOLINAR VALDIVIA Department: Room: Gender: F [employer] Consultant: BEATRICE : 1975 Requested By: ALVIN SOLO Order Number: [id number] Reading MD: Nicolas Lockwood Measurements Intervals [place] Rate: 105 P: 74 MN: 137 QRS: 49 QRSD: 86 T: 25 QT: 353 QTc: 467 Interpretive Statements Sinus tachycardia No previous ECG available for comparison Electronically Signed On 03-03-2021 12:05:30 EST by Nicolas Lockwood
[2021-03-03 13:13] LABS: Basophils % (Auto) 0.2 % (0.0-1.8); Eosinophils % (Auto) 0.4 % (0.0-4.3); Hematocrit 40.9 % (30.3-42.9); Hemoglobin 13.1 gm/dl (10.1-14.3); Lymphocytes # (Auto) 0.9 K/mm3 (1.2-5.4); Lymphocytes % (Auto) 9.1 % (13.4-35.0); Mean Corpuscular HGB Conc 32 % (30-34); Mean Corpuscular Volume 91 fl (79-97); Monocytes # (Auto) 0.4 K/mm3 (0.0-0.8); Monocytes % (Auto) 3.8 % (0.0-7.3); Platelet Count 312 K/mm3 (140-440); Red Cell Distribution Width 13.3 % (13.2-15.2)
[2021-03-03 13:21] LABS: Alanine Aminotransferase 47 units/L (7-56); Albumin 3.8 g/dL (3.9-5); Blood Urea Nitrogen 9 mg/dL (7-17); Calcium 9.2 mg/dL (8.4-10.2); Hemolysis Index 5
[2021-03-03 13:55] LABS: BUN/Creatinine Ratio 13
--- NOTE | 2021-03-03 14:51 | Cat Scan Report ---
CTA CHEST WITH CONTRAST INDICATION / CLINICAL INFORMATION: Pneumonia, chest pain, tachycardic/tachypneic. TECHNIQUE: Axial CT images were obtained through the chest after injection of 75 cc Omnipaque 350 IV contrast. 3 plane MIP and/or 3D reconstructions were produced. All CT scans at this location are perf ormed using CT dose reduction for ALARA by means of automated exposure control. COMPARISON: None available. FINDINGS: PULMONARY ARTERIES: Good opacification bilaterally without intraluminal filling defect to suggest acu te PTE. THORACIC AORTA: No significant abnormality. HEART: No significant abnormality. CORONARY ARTERY CALCIFICATION: None. MEDIASTINUM / LANA: There is mild bilateral hilar and mediastinal lymphadenopathy. PLEURA: No pleural effusion. No pneumothorax. LUNGS: There are moderate patchy areas of parenchymal disease scattered throughout both lungs and all lobes. Disease is most prominent in the lower lobes and is predominantly related to groundglass pare nchymal disease, centrilobular nodularity, septal thickening and minimal areas of consolidation. ADDITIONAL FINDINGS: None. UPPER ABDOMEN: No acute findings. SKELETAL STRUCTURES: No significant osseous abnormality. IMPRESSION: 1. No CT evidence for pulmonary embolism. 2. Patchy bilateral multifocal pneumonia. Atypical causes of pneumonia, including viral pneumonia, sh ould be considered. 3. Mild bilateral hilar and mediastinal lymphadenopathy is probably reactive. Signer Name: Joe Arora MD Signed: 03/03/2021 2:47 PM Workstation Name: [id number]
[2021-03-03 16:40] VITALS: BP 120/75
== END 2021-03-03 16:42 | disposition home or self-care (01) ==
LOC: ED 08:51
DX: Z20.822 Contact with and (suspected) exposure to COVID-19 (principal); J18.9 Pneumonia, unspecified organism; J45.909 Unspecified asthma, uncomplicated
CPT/HCPCS: 36415; 71046; 71275; 80053; 85025; 85379; 93005; 94640; 96374; 99285; J1100; Q9967